=== PATIENT | female | born 1950 | race Caucasian/White ===

== ENCOUNTER → 2018-03-09 | Outpatient (REF) | payer MEDICARE, OTHER ==
[~2018-03-09] MED LIST: ACE3 PO; CALC500T6 PO; CEP500 PO; ESTR1; ESTR42.59 VG; FISH OIL1 CAP PO; GREEN TEA; IBU200 PO; KET10 PO; LEVO500T PO; MULT-1176 PO; MULT-947 PO; MULT1CAP41 PO; PROP80CA40 PO; TURMERIC; UBID10CA8 PO
[2018-03-09 18:17] LABS: PLATELET COUNT, AUTOMATED 209 K/uL (150-450)
== END ==
LOC: ZZSTITCHES 18:01
PROVIDERS: ATTEND Physician Assistant
DX: R07.9 Chest pain, unspecified (principal); K21.9 Gastro-esophageal reflux disease without esophagitis; R11.0 Nausea
CPT/HCPCS: 82040; 82247; 82310; 82374; 82435; 82565; 82947; 84075; 84132; 84155; 84295; 84443; 84450; 84460; 84484; 84520; 85025; 85379

== ENCOUNTER → 2018-05-02 | Outpatient (CLI) | payer MEDICARE, OTHER ==
[~2018-05-02] MED LIST changes: +IOPAMIDOL 76% 100 ML INFUS BTL 100 ML ONE; +NS 0.9% 25 ML BAG 50 ML ONE; +OMEP40CA48 PO
[2018-05-02 11:22] LABS: PLATELET COUNT, AUTOMATED 217 K/uL (150-450)
--- NOTE | 2018-05-02 16:38 | RADIOLOGY IMAGING REPORT ---
FACILITY: [facility] PATIENT NAME: Gwen Forte : 1950 MR: [id number] V: [id number] EXAM DATE: ORDERING PHYSICIAN: NERISSA BARBOZA TECHNOLOGIST: Location: [facility] Patient: Gwen Forte : 1950 Visit/Account:[id number] Date of Sevice: 05/02/2018 ADDENDUM #1 Under the abdomen and pelvis heading the following sentence should be included. 70 Second postcontrast delayed images were obtained through the abdomen and pelvis with no additional information to be added to the dictation. Report Dictated By: Yazmin Kirkland MD at 05/02/2018 5:30 PM Report E-Signed By: Yazmin Kirkland MD at 05/02/2018 5:33 PM ORIGINAL REPORT CTA CHEST ABD PEL W WO CONT HISTORY: Epigastric pain with pulsations ADDITIONAL HISTORY: None. TECHNIQUE: CTA chest, abdomen and pelvis following intravenous contrast. 3D coronal slab MIPs and 2 D reconstructions in the coronal and sagittal planes were also created. CONTRAST: 100 mL of Isovue-370 COMPARISON: CT abdomen and pelvis February 18, 2007 FINDINGS: Vessels: There is no evidence of a thoracic aortic aneurysm or dissection. Significant coronary art lu calcifications are not identified. No evidence of an abdominal aortic aneurysm or dissection. No significant atherosclerotic plaquing i s identified Chest: Lower neck: Negative. Heart/pericardium: Negative. Mediastinum/hilum/lymph nodes: Negative. Lungs/pleura: Minimal linear stranding in the inferior lingula and right middle lobe consistent with minimal atelectasis versus scarring Bones/soft tissues: No aggressive appearing bone lesions Other findings: None significant Abdomen and Pelvis: The abdominal pelvic organs were imaged in the arterial phase Hepatobiliary: Negative. Spleen: Negative. Adrenals: Negative. Pancreas: Negative. /retroperitoneum: Negative. Bowel/peritoneum/mesentery: Negative. Lymph nodes: Negative. Bones/body wall: There are several small sclerotic foci seen in the left femoral head, right iliac b one, lumbar spine likely representing bone islands. There are moderate spondylotic changes at L2-3 Other findings: None significant IMPRESSION: No evidence of a thoracic or abdominal aortic aneurysm or dissection. No significant atherosclerotic disease is identified. Report Dictated By: Yazmin Kirkland MD at 05/02/2018 4:22 PM Report E-Signed By: Yazmin Kirkland MD at 05/02/2018 4:34 PM WSN:[email or web address]
== END ==
LOC: LAB 10:49
PROVIDERS: ATTEND Nurse Practitioner Primary Care
DX: J98.11 Atelectasis (principal); M47.896 Other spondylosis, lumbar region
CPT/HCPCS: 36415; 71275; 74174; 82150; 83690; 85025; Q9967; 74177; 82040; 82247; 82310; 82374; 82435; 82565; 82947; 84075; 84132; 84155; 84295; 84450; 84460; 84520

== ENCOUNTER → 2019-04-03 | Outpatient (CLI) | payer MEDICARE, OTHER ==
[~2019-04-03] MED LIST changes: +DILT120C4 PO; +DIPH0.5S2 IM; +FLU180SY11 IM; -IOPAMIDOL 76% 100 ML INFUS BTL 100 ML ONE; -NS 0.9% 25 ML BAG 50 ML ONE
== END ==
LOC: LAB 08:40
PROVIDERS: ATTEND Emergency Medicine
DX: R35.1 Nocturia (principal)
CPT/HCPCS: 81001